=== PATIENT | female | born 1960 | race Caucasian/White ===

== ENCOUNTER 2018-02-12 16:40 | Emergency (ER) | payer SELFPAY ==
--- NOTE | 2018-02-12 17:38 | ED PDOC ---
Arrival/HPI - General Historian: Patient - History of Present Illness Narrative History of Present Illness (Text): 02/12/18 17:46 57 yo F c/o L wrist and hand pain, after she fell and injured it this morning. Reports no numbness, decrease in ROM, other injury. Has no other complaints. <Ifeoma Vera PA-C - Last Filed: 02/12/18 19:48> <Eliel Owens - Last Filed: 02/12/18 20:02> - General Time Seen by Provider: 02/12/18 17:29 Family/Social History Family/Social History: No Known Family HX <Ifeoma Vera PA-C - Last Filed: 02/12/18 19:48> Allergies/Home Meds <Ifeoma Vera PA-C - Last Filed: 02/12/18 19:48> <Eliel Owens - Last Filed: 02/12/18 20:02> Allergies/Adverse Reactions: Allergies No Known Allergies Allergy (Verified 02/12/18 17:30) Home Medications: Home Meds Medication Instructions Recorded Confirmed RX: Unobtainable 02/12/18 02/12/18 Review of Systems - Review of Systems Constitutional: absent: Fatigue, Fevers Gastrointestinal: Abdominal Pain (chronic epigastric pain worse with eating for many years associated with nausea), Nausea. absent: Stool Changes, Constipation, Diarrhea Musculoskeletal: Arthralgias, Joint Swelling. absent: Back Pain, Neck Pain Skin: absent: Rash, Pruritis, Skin Lesions <Ifeoma Vera PA-C - Last Filed: 02/12/18 19:48> Physical Exam Temperature: Afebrile Blood Pressure: Hypertensive (178/80) Pulse: Regular Respiratory Rate: Normal Appearance: Positive for: Well-Appearing, Non-Toxic, Comfortable Pain Distress: Mild Mental Status: Positive for: Alert and Oriented X 3 - Systems Exam Mouth: Present: Moist Mucous Membranes Neck: Present: Normal Range of Motion Respiratory/Chest: Present: Clear to Auscultation, Good Air Exchange. No: Respiratory Distress, Accessory Muscle Use, Wheezes, Rales, Rhonchi Cardiovascular: Present: Regular Rate and Rhythm, Normal S1, S2. No: Murmurs Abdomen: Present: Normal Bowel Sounds. No: Tenderness, Distention, Rebound, Guarding, Mass/Organomegaly Back: Present: Normal Inspection. No: CVA Tenderness Upper Extremity: Present: Edema, Normal ROM, NORMAL PULSES, Tenderness (L wrist / hand : +mild tenderness and mild edema to the dorsal wrist and medial hand by the 5th metacarpal, FROM. ), Neurovascularly Intact, Capillary Refill < 2s, Norm 2-Pt Discrimination. No: Temperature Abnormalties, Deformity Neurological: Present: GCS=15, CN II-XII Intact, Speech Normal, Motor Func Grossly Intact, Normal Sensory Function Skin: Present: Warm, Dry, Normal Color. No: Rashes <Ifeoma Vera PA-C - Last Filed: 02/12/18 19:48> Vital Signs Temp Pulse Resp BP Pulse Ox 02/12/18 19:06 54 L 18 148/92 H 96 02/12/18 18:00 99.1 F 60 18 178/80 H 95 <Eliel Owens - Last Filed: 02/12/18 20:02> Medical Decision Making ED Course and Treatment: 02/12/18 17:35 Plan : - XR L wrist - XR L hand Patient is refusing any analgesics at this time. XR L hand : no fracture, no dislocation, as read by PA XR L wrist : no fracture, no dislocation, as read by PA XR results d/w the patient. Dx of hand/wrist contusion d/w the patient. Advised RICE to the wrist/hand, Orthoglass volar splint applied. Neurovascular intact post splint application. Repeat BP 148/92. Advised to follow up with the clinic in 1-2 days without fail. Advised to take tylenol otc for pain. Return to the emergency room at any time for any new or worsening symptoms. Patient states she fully agrees with and understands discharge instructions. States that she agrees with the plan and disposition. Verbalized and repeated discharge instructions and plan. I have given the patient opportunity to ask any additional questions. - RAD Interpretation Radiology Orders: 02/12/18 17:30 HAND LEFT 3 VIEWS ROUTINE [RAD] Stat WRIST, LEFT 3 VIEWS [RAD] Stat <Ifeoma Vera PA-C - Last Filed: 02/12/18 19:48> - RAD Interpretation Radiology Orders: 02/12/18 17:30 HAND LEFT 3 VIEWS ROUTINE [RAD] Stat WRIST, LEFT 3 VIEWS [RAD] Stat <Eliel Owens - Last Filed: 02/12/18 20:02> - PA / PROVIDER RELATIONS SPECIALIST / Resident Statement SELENA has reviewed & agrees with the documentation as recorded. <Ifeoma Vera PA-C - Last Filed: 02/12/18 19:48> - PA / PROVIDER RELATIONS SPECIALIST / Resident Statement SELENA has reviewed & agrees with the documentation as recorded. <Eliel Owens - Last Filed: 02/12/18 20:02> Disposition/Present on Arrival - Present on Arrival Any Indicators Present on Arrival: No History of DVT/PE: No History of Uncontrolled Diabetes: No Urinary Catheter: No History of Decub. Ulcer: No - Disposition Have Diagnosis and Disposition been Completed?: Yes Disposition Time: 18:50 Patient Plan: Discharge <Ifeoma Vera PA-C - Last Filed: 02/12/18 19:48> <Eliel Owens - Last Filed: 02/12/18 20:02> - Disposition Diagnosis: Hand contusion, Wrist contusion Disposition: HOME/ ROUTINE Condition: STABLE Discharge Instructions (ExitCare): Contusion (DC) Additional Instructions: Thank you for letting us take care of you today. You were treated for hand and wrist contusion. The emergency medical care you received today was directed at your acute symptoms. Rest, ice and elevate the wrist/hand. Take over the counter tylenol for pain. It may take several days for your symptoms to resolve. Return to the Emergency Department if your symptoms worsen, do not improve, or if you have any other problems. Please contact the clinic in 2 days for re-evaluation and follow up. Bring any paperwork you were given at discharge with you along with any medications you are taking to your follow up visit. Our treatment cannot replace ongoing medical care by a primary care provider (PCP) outside of the emergency department. Thank you for allowing the [facility] team to be part of your care today. If you had an CT scan: A Radiologist will review the ED reading if any change in treatment is needed we will contact you. Referrals: PCP,NO [Primary Care Provider] - Follow up with primary Forms: WORK NOTE
[2018-02-12 17:53] VITALS: BMI 38.7
[2018-02-12 18:01] VITALS: RESP 18; TEMP 99.1
[2018-02-12 19:07] VITALS: BP 148/92; PULSE 54; O2SAT 96
--- NOTE | 2018-02-13 08:23 | RAD ---
PROCEDURE: Left Hand Radiographs. HISTORY: pain COMPARISON: None. FINDINGS: BONES: Normal. No fracture. JOINTS: Normal. No osteoarthritic changes. SOFT TISSUES: Normal. OTHER FINDINGS: None. IMPRESSION: Normal left hand radiographs.
--- NOTE | 2018-02-13 08:47 | RAD ---
Date of service: 02/12/2018 PROCEDURE: Right Wrist Radiographs. HISTORY: pain COMPARISON: None. FINDINGS: BONES: Normal. No fracture. JOINTS: Normal. No dislocation. SOFT TISSUES: Normal. OTHER FINDINGS: None. IMPRESSION: Normal right wrist radiographs.
== END 2018-02-12 19:06 | disposition home or self-care (01) ==
LOC: ED 16:40
DX: S60.212A Contusion of left wrist, initial encounter (principal); W01.0XXA Fall on same level from slipping, tripping and stumbling without subsequent striking against object, initial encounter; Y92.9 Unspecified place or not applicable